=== PATIENT | female | born 1940 ===

== ENCOUNTER 2019-03-15 05:31 | Day surgery (SDC) | payer OTHER ==
[~2019-03-15 05:31] MED LIST: MULTIVITAMINS1 EAC9 PO
[2019-03-15] MEDS ORDERED: ULTRACET PO (09:47)
[2019-03-15] MEDS ORDERED: MACROBID 100 M100 MG PO (09:48)
== END 2019-03-15 12:10 | disposition home or self-care (01) ==
LOC: CIR.AMB 05:31
DX: N81.81 Perineocele (principal)